=== PATIENT | female | born 1990 | race Caucasian/White ===

== ENCOUNTER 2016-10-29 11:42 | Emergency (ER) | payer OTHER ==
[~2016-10-29] VITALS: Ht 160 cm; Wt 63.0 kg
[~2016-10-29 11:42] MED LIST: DOXY100T20 PO; HYDR-906 PO; IBUP400T22 PO; METR500T PO; NAPR-260 PO
[2016-10-29 12:02] VITALS: Ht 160 cm; Wt 63.0 kg
[2016-10-29] MEDS ORDERED: SOD CHLORIDE 0.9% 1,000 ML IV STA (12:15)
[2016-10-29 12:38] LABS: ADD SCAN DIFF NO
[2016-10-29 12:40] LABS: BASOPHIL # 0.1 10^3/ul (0.0-0.1); BASOPHILS % 0.6 % (0.0-2.0); EOSINOPHILS # 0.1 10^3/ul (0.0-0.5); HEMATOCRIT 36.8 % (37.0-47.0); HEMOGLOBIN 12.3 g/dl (12.0-16.0); LYMPHOCYTES # 1.8 10^3/ul (0.8-2.9); LYMPHOCYTES % 17.9 % (15.0-51.0); MEAN CORPUSCULAR HEMOGLOBIN 29.9 pg (29.0-33.0); MEAN CORPUSCULAR HGB CONC 33.4 g/dl (32.0-37.0); MEAN CORPUSCULAR VOLUME 89.3 fl (82.0-101.0); MEAN PLATELET VOLUME 9.7 fl (7.4-10.4); MONOCYTE # 0.7 10^3/ul (0.3-0.9); NEUTROPHIL # 7.2 10^3/ul (1.6-7.5); NEUTROPHILS % 71.3 % (39.0-77.0); PLATELET COUNT 312 10^3/UL (140-415); RED BLOOD COUNT 4.12 10^6/ul (4.20-5.40); RED CELL DISTRIBUTION WIDTH 12.4 % (11.5-14.5); WHITE BLOOD COUNT 10.1 10^3/ul (4.8-10.8)
[2016-10-29 12:54] LABS: ANION GAP 8 (8-16); BLOOD UREA NITROGEN 8 mg/dl (7-20); CALCIUM 8.7 mg/dl (8.4-10.2); CARBON DIOXIDE 25 mmol/L (21-31); CHLORIDE 106 mmol/L (97-110); CREATININE 0.47 mg/dl (0.44-1.00); GLUCOSE 118 mg/dl (70-220); POTASSIUM 3.7 mmol/L (3.5-5.1); SODIUM 135 mmol/L (135-144)
[2016-10-29 13:06] LABS: TROPONIN-I < 0.012 ng/ml (0.00-0.12)
[2016-10-29 13:11] LABS: FREE T3 3.19 pg/ml (2.77-5.27)
[2016-10-29] MEDS ORDERED: PROP60CA7 PO (14:46)
--- NOTE | 2016-10-29 14:52 | ERD ---
ER Documentation Chief Complaint Date/Time DATE: 10/29/16 TIME: 14:49 Chief Complaint SVT at work rate of 200bpm coverted at scene w/ 12mg adenosine HPI This is a 26-year-old female with history of palpitations that occur monthly to bimonthly for the past 18 months. She says she gets heart racing usually resolves after 15 minutes. She has no chest pain or shortness of breath. She said today she had the same symptoms as usual however they did not go away after 15 minutes. This time today prior to arrival she had no chest pain or shortness of breath. She has no abdominal pain contractions vaginal bleeding. The patient says she has not had a workup for any arrhythmia and never has seen a doctor for this problem until today. She called EMS and was found to be in SVT and she was given adenosine 6 and 12 mg which broke her rhythm into a sinus tachycardia. Currently she is asymptomatic and has no complaints ROS All systems reviewed and are negative except as per history of present illness. Medications Home Meds Active Scripts Propranolol Hcl* (Inderal* LA) 60 Mg Cap.sa.24h, 60 MG PO DAILY, #30 CAP Prov:TREVOR BENTON DO 10/29/16 Discontinued Scripts Naproxen* (Naprosyn*) 500 Mg Tablet, 500 MG PO BID Y for PAIN AND/OR INFLAMMATION, #30 TAB Prov:JOHNNY MARTINEZ PA-C 05/06/16 Hydrocodone/Acetaminophen ([place] 5-325 Tablet) 1 Each Tablet, 1 EACH PO Q6, #6 TAB Prov:JOHNNY MARTINEZ PA-C 05/06/16 Ibuprofen* (Motrin*) 400 Mg Tab, 400 MG PO Q6, #30 TAB Prov:TRINO CONTI PA-C 04/03/16 Metronidazole* (Flagyl*) 500 Mg Tablet, 500 MG PO BID for 14 Days, TAB Prov:TRINO CONTI PA-C 04/03/16 Doxycycline Hyclate* (Doxycycline Hyclate*) 100 Mg Tablet.dr, 100 MG PO BID for 14 Days, TAB Prov:TRINO CONTI PA-C 04/03/16 Allergies Allergies: Coded Allergies: No Known Allergy (Unverified , 09/11/15) PMhx/Soc History of Surgery: Yes Anesthesia Reaction: No Hx Neurological Disorder: No Hx Respiratory Disorders: No Hx Cardiac Disorders: No Hx Psychiatric Problems: No Hx Miscellaneous Medical Probl: No Hx Alcohol Use: No Hx Substance Use: No Hx Tobacco Use: No Smoking Status: Never smoker FmHx Family History: No coronary disease Physical Exam Vitals Vital Signs Date Time Temp Pulse Resp B/P Pulse Ox O2 Delivery O2 Flow Rate FiO2 10/29/16 13:30 98.5 98 20 104/73 100 Room Air 10/29/16 12:05 98.5 110 20 114/83 100 Room Air 10/29/16 12:02 98.5 109 20 119/85 100 10/29/16 11:50 Nasal Cannula 2 Physical Exam Const: Well-developed, well-nourished Head: Atraumatic, normocephalic Eyes: Normal Conjunctiva, PERRLA, EOMI, normal sclera, no nystagmus ENT: Normal External Ears, Nose and Mouth, moist mucus membranes. Neck: Full range of motion. No meningismus, no lymphadenopathy. Resp: Clear to auscultation bilaterally, no wheezing, rhonchi, rales Cardio: Tachycardia heart rate 108 no murmurs, S1 S2 present Abd: Soft, non tender x 4, non distended., Gravid normal bowel sounds , no guarding or rebound, no pulsitile abdominal masses or bruits Skin: No petechiae or rashes, no ecchymosis , no maculopapular rash Back: No midline or flank tenderness Ext: No cyanosis, or edema, FROM x 4, normal inspection, neurovascularly intact x 4 Neur: Awake and alert, STR 5/5 x 4, sensation intact x 4, no focal findings, cerebellum intact Psych: Normal Mood and Affect Result Diagram: 10/29/16 1153 10/29/16 1153 Results 24 hrs Laboratory Tests Test 10/29/16 11:53 White Blood Count 10.110^3/ul Red Blood Count 4.1210^6/ul Hemoglobin 12.3g/dl Hematocrit 36.8% Mean Corpuscular Volume 89.3fl Mean Corpuscular Hemoglobin 29.9pg Mean Corpuscular Hemoglobin Concent 33.4g/dl Red Cell Distribution Width 12.4% Platelet Count 57593^3/UL Mean Platelet Volume 9.7fl Neutrophils % 71.3% Lymphocytes % 17.9% Monocytes % 7.0% Eosinophils % 1.0% Basophils % 0.6% Nucleated Red Blood Cells % 0.0/100WBC Neutrophils # 7.210^3/ul Lymphocytes # 1.810^3/ul Monocytes # 0.710^3/ul Eosinophils # 0.110^3/ul Basophils # 0.110^3/ul Nucleated Red Blood Cells # 0.010^3/ul Sodium Level 135mmol/L Potassium Level 3.7mmol/L Chloride Level 106mmol/L Carbon Dioxide Level 25mmol/L Anion Gap 8 Blood Urea Nitrogen 8mg/dl Creatinine 0.47mg/dl Glucose Level 118mg/dl Calcium Level 8.7mg/dl Troponin I < 0.012ng/ml Thyroid Stimulating Hormone (TSH) 1.220MIU/L Free Thyroxine 0.76ng/dl Free Triiodothyronine (T3) pg/mL 3.19pg/ml Current Medications Medications (Trade) Dose Ordered Sig/Lázaro Route PRN Reason Start Time Stop Time Status Last Admin Dose Admin Sodium Chloride (NS) 1,000 ml @ 1,000 mls/hr Q1H STAT IV 10/29/16 12:15 10/29/16 13:14 DC 10/29/16 12:49 Procedures/MDM EKG: Rate/Rhythm: Sinus tachycardia heart rate 108, right axis deviation no S1 Q3 T3 QRS, ST, QT: NORMAL [place], QRS, QT] Impression: NORMAL EKG Patient's thyroid is normal labs are unremarkable. The patient is likely having recurrent SVT on a monthly and bimonthly basis. Gave her a prescription for propanolol to start and she will see her OB GEN the beginning of this week as she artery has an appointment. She stable for discharge home and return if any symptoms return Departure Diagnosis: Primary Impression: SVT (supraventricular tachycardia) Condition: Stable Patient Instructions: TREVOR MONTES DO Oct 29, 2016 14:52
[2016-10-29 15:30] VITALS: BP 96/66; PULSE 99; RESP 20; TEMP 98.5
== END 2016-10-29 15:30 | disposition home or self-care (01) ==
LOC: E/R 11:42
DX: I47.1 Supraventricular tachycardia (principal)
CPT/HCPCS: 80048; 84439; 84443; 84481; 84484; 85025; 93005; J7030; 36415

== ENCOUNTER 2016-12-03 22:57 | Outpatient (CLI) | payer OTHER ==
[~2016-12-03] VITALS: Ht 165.1 cm; Wt 62.3 kg
[~2016-12-03 22:57] MED LIST changes: -DOXY100T20 PO; -HYDR-906 PO; -IBUP400T22 PO; -METR500T PO; -NAPR-260 PO; +PROP60CA7 PO
[2016-12-03 23:06] VITALS: Ht 165.1 cm; Wt 62.3 kg
[2016-12-03] MEDS ORDERED: PRENAT PO (23:07)
--- NOTE | 2016-12-03 23:43 | PN ---
Date/Time of Note Date/Time of Note DATE: 12/03/16 TIME: 23:38 OB Subjective Subjective Subjective 26 yo P0010 @ 29 wks gestation, unregistered to this hospital, presents with abdominal pain, which resolved when lying down and is worse when walking good FM, no VB, c/o LOF, no ctx OB Objective Objective Objective Nml VS Abdomen- gravid, n/t SVE- deferred FHT- Cat I [place]- no ctx SSE: neg pooling, neg nitrazine Abdomen: WNL Membranes: Intact Heart Rate: 150's Accelerations: Accelerations Present Decelerations: No Decelerations Varibility: Moderate Contractions on Admission: None OB Assessment/Plan Other Assessment: patient c/o abdominal pain, which is likely muscular r/o pprom Other plan: no signs of PPROM; will send ROM+ to confirm and will order u/s if neg and nml sono, d/c home advised to purchase maternity binder for abdominal pain. TRICIA WESTFALL MD December 03, 2016 23:43
[2016-12-03 23:48] LABS: ADD UMIC YES; URINE BILIRUBIN (Dip) NEGATIVE (NEGATIVE); URINE BLOOD (Dip) NEGATIVE (NEGATIVE); URINE COLOR LT. YELLOW (YELLOW); URINE KETONES (Dip) NEGATIVE (NEGATIVE); URINE LEUKOCYTE ESTERASE (Dip) TRACE (NEGATIVE); URINE NITRITE (Dip) NEGATIVE (NEGATIVE); URINE TOTAL PROTEIN (Dip) NEGATIVE (NEGATIVE); URINE UROBILINOGEN (Dip) 0.2 E.U./dL (0.1-1.0)
[2016-12-04 00:41] LABS: SQUAMOUS EPITHELIAL CELL,UR FEW; URINE RBCS 0-2 /HPF (0)
[2016-12-04 00:42] LABS: BACTERIA,URINE MODERATE
--- NOTE | 2016-12-04 01:44 | TRIAGE ---
OB Triage Datetime Report Generated by CPN: 12/04/2016 01:43 Datetime: 12/04/2016 01:43 Stage of : OB Triage Datetime: 12/04/2016 01:25 Stage of : OB Triage Datetime: 12/04/2016 00:41 Stage of : OB Triage Datetime: 12/04/2016 00:25 Stage of : OB Triage Datetime: 12/03/2016 23:55 Stage of : OB Triage Datetime: 12/03/2016 23:41 Comments: NST MONITORING COMPLETED Datetime: 12/03/2016 23:30 Labor Evaluation Frequency: NONE Monitor Mode: External Duration (sec)2399: NONE Pattern: Normal: <= 5 Contractions in 10 Minutes Contraction Comments: PT. DENIES CRAMPING Heart Rate FHR Baseline Rate: 145 Monitor Mode: External US FHR Baseline Changes: No Baseline Change Variability: Moderate 6-25 bpm Accelerations: 15X15 Decelerations: None Datetime: 12/03/2016 23:08 Monitor Mode: Palpation Resting Tone [place]: Relaxed Datetime: 12/03/2016 23:02 Assessment Type: Triage EGA: 29.4 Maternal Assessment Level of Consciousness: Fully Conscious Headache: Denies Blurred Vision: No Respiratory Effort: Unlabored; Regular Rhythm; Equal Expansion Nausea/Vomiting: Denies RUQ Epigastric Pain: Denies Facial Edema: None Fall Risk Assessment History of Falling: (0) No Secondary Diagnosis: (0) No Ambulatory Aid: (0) Bedrest/Nurse Assist IV Therapy: (0) No Gait: (0) Normal/Bedrest/Immobile Mental Status: (0) Oriented to Own Ability Fall Score: 0 Fall Risk Score Definition: No Risk: No action required Datetime: 12/03/2016 23:01 Time of Arrival: 12/03/2016 22:46 Arrived By: Wheelchair Arrived From: Home Chief Complaint: CONSTANT LOWER ABD PAIN WITH 'LEAKING' Movement: Present Contractions: Denies/Absent Rupture of Membranes: Unsure Vaginal Bleeding: None Vaginal Discharge: Present Recent Sexual Intercouse: Denies Abdominal Trauma: Not Applicable Patient Complaints: Other Time Provider Notified: 12/03/2016 23:19 Provider Notified: WESTFALL Initial Plan: EFM, CALL OB Datetime: 12/03/2016 22:59 Monitor Mode: Palpation Resting Tone [place]: Relaxed Datetime: 12/03/2016 22:58 Monitor Mode: External Monitor Mode: External US Datetime: 12/03/2016 22:55 Stage of : OB Triage Temperature Route: Oral Datetime: 12/03/2016 22:50 Stage of : OB Triage
== END 2016-12-04 01:50 | disposition home or self-care (01) ==
LOC: OBT 22:57 → L-D 22:58 → OBT 12-04 01:50
PROVIDERS: ATTEND Obstetrics & Gynecology
DX: O26.893 Other specified pregnancy related conditions, third trimester (principal); R10.9 Unspecified abdominal pain; Z3A.29 29 weeks gestation of pregnancy
CPT/HCPCS: 76815; 81001; 81003; 82731; 84112; G0463

== ENCOUNTER 2017-02-11 03:04 | Inpatient (IN) | payer OTHER ==
[~2017-02-11] VITALS: Ht 162.6 cm; Wt 69.5 kg
[~2017-02-11 03:04] MED LIST changes: +PRENAT PO; -PROP60CA7 PO
[2017-02-11 03:29] VITALS: Ht 162.6 cm; Wt 69.5 kg
[2017-02-11 03:30] VITALS: BP 123/72; PULSE 89; RESP 18
[2017-02-11] MEDS ORDERED: BUTORPHANOL 2 MG INJ IV PRN (04:00)
[2017-02-11] MEDS ORDERED: LIDOCAINE 1% (MPF) 30 ML INJ INJ PRN (04:00)
[2017-02-11] MEDS ORDERED: METHYLERGONOVINE 0.2 MG INJ IM PRN (04:00)
[2017-02-11] MEDS ORDERED: OXYTOCIN 30 UNITS/LR 500 ML IV SCH ×2 (04:00)
[2017-02-11] MEDS ORDERED: MISOPROSTOL 200 MCG TAB PR PRN (04:00)
[2017-02-11] MEDS ORDERED: LACTATED RINGER'S 1,000 ML IV PRN (04:00)
[2017-02-11] MEDS ORDERED: CARBOPROST 250 MCG INJ IM PRN (04:00)
[2017-02-11] MEDS ORDERED: OXYTOCIN 30 UNITS/LR 500 ML IV PRN ×2 (04:00→16:00)
[2017-02-11 05:23] LABS: BASOPHIL # 0.1 10^3/ul (0.0-0.1); BASOPHILS % 0.5 % (0.0-2.0); EOSINOPHILS # 0.1 10^3/ul (0.0-0.5); EOSINOPHILS % 0.7 % (0.0-7.0); HEMATOCRIT 42.4 % (37.0-47.0); HEMOGLOBIN 14.1 g/dl (12.0-16.0); LYMPHOCYTES # 2.2 10^3/ul (0.8-2.9); LYMPHOCYTES % 21.1 % (15.0-51.0); MEAN CORPUSCULAR HEMOGLOBIN 29.2 pg (29.0-33.0); MEAN CORPUSCULAR HGB CONC 33.3 g/dl (32.0-37.0); MEAN CORPUSCULAR VOLUME 87.8 fl (82.0-101.0); MEAN PLATELET VOLUME 9.7 fl (7.4-10.4); MONOCYTE # 0.9 10^3/ul (0.3-0.9); MONOCYTES % 8.3 % (0.0-11.0); NEUTROPHIL # 6.8 10^3/ul (1.6-7.5); NEUTROPHILS % 66.5 % (39.0-77.0); PLATELET COUNT 238 10^3/UL (140-415); RED BLOOD COUNT 4.83 10^6/ul (4.20-5.40); RED CELL DISTRIBUTION WIDTH 13.3 % (11.5-14.5); WHITE BLOOD COUNT 10.3 10^3/ul (4.8-10.8)
[2017-02-11] MEDS: LACTATED RINGER'S 1,000 ML IV SCH ×2 (05:25→20:26)
[2017-02-11 05:37] LABS: INR 0.87; PROTIME 11.8 Sec (12.2-14.2); PT RATIO 0.9
[2017-02-11 05:38] LABS: PARTIAL THROMBOPLASTIN TIME 27.9 Sec (25.0-35.0)
--- NOTE | 2017-02-11 05:46 | TRIAGE ---
OB Triage Datetime Report Generated by CPN: 02/11/2017 05:46 Datetime: 02/11/2017 05:05 Vaginal Exam Dilatation (cms): 2.0 Effacement (%): 70 Station: -3 Exam By: ASAEL Vaginal Bleeding: None Cervix, Consistency: Soft Cervix, Position: Midposition Datetime: 02/11/2017 04:40 Assessment Type: Admission Assessment Vaginal Bleeding: None Maternal Assessment Level of Consciousness: Fully Conscious DTR's/Clonus: DTRs 2+; No Clonus Headache: Denies Blurred Vision: No Respiratory Effort: Unlabored; Regular Rhythm; Equal Expansion Breath Sounds, Left: Clear and Equal Breath Sounds, Right: Clear and Equal Nausea/Vomiting: Denies RUQ Epigastric Pain: Denies Lower Extremities Edema: None Upper Extremities Edema: None Facial Edema: None Fall Risk Assessment History of Falling: (0) No Secondary Diagnosis: (0) No Ambulatory Aid: (0) Bedrest/Nurse Assist IV Therapy: (0) No Gait: (0) Normal/Bedrest/Immobile Mental Status: (0) Oriented to Own Ability Fall Score: 0 Fall Risk Score Definition: No Risk: No action required Pain Assessment Pain Scale: 7 Pain Presence: Intermittent Pain Type: Cramping; Crushing Pain Location: Abdomen; Back Pain Goal: 3 Membranes Ruptured Date/Time: 02/11/2017 02:40 Membranes Rupture Method: Spontaneous Amniotic Fluid Color: Clear Amniotic Fluid Amount: Moderate Amniotic Fluid Odor: None Pool: Positive (Annotations: PER NESSA RN) Nitrazine: Positive (Annotations: PER NESSA) Datetime: 02/11/2017 04:00 Stage of : OB Triage Labor Evaluation Frequency: 2-3 Monitor Mode: External Duration (sec)2399: 60-90 Quality: Moderate Pattern: Normal: <= 5 Contractions in 10 Minutes Resting Tone [place]: Relaxed Heart Rate FHR Baseline Rate: 125 Monitor Mode: External US FHR Baseline Changes: No Baseline Change Variability: Moderate 6-25 bpm Accelerations: 15X15 Decelerations: None Category: Category I Pain Assessment Pain Scale: 3 Pain Presence: Intermittent Pain Type: Contraction Pain Location: Abdomen Pain Goal: 6 Pain Relief Measures: Comfort Measures Datetime: 02/11/2017 03:40 Stage of : OB Triage Datetime: 02/11/2017 03:21 Vaginal Exam Dilatation (cms): 1.0 Effacement (%): 70 Station: -2 Exam By: Wander Eaton RN Membrane Status: Ruptured Membranes Rupture Method: Spontaneous Amniotic Fluid Color: Clear Amniotic Fluid Amount: Moderate Amniotic Fluid Odor: None Vaginal Bleeding: None Pool: Positive Nitrazine: Positive Cervix, Consistency: Moderate Cervix, Position: Midposition Presentation 'A': Cephalic Datetime: 02/11/2017 03:18 Assessment Type: Triage Maternal Assessment Level of Consciousness: Fully Conscious DTR's/Clonus: DTRs 2+; No Clonus Headache: Denies Blurred Vision: No Respiratory Effort: Unlabored; Regular Rhythm; Equal Expansion Breath Sounds, Left: Clear and Equal Breath Sounds, Right: Clear and Equal Nausea/Vomiting: Denies RUQ Epigastric Pain: Denies Lower Extremities Edema: None Degree: None Upper Extremities Edema: None Degree: None Facial Edema: None Fall Risk Assessment History of Falling: (0) No Secondary Diagnosis: (0) No Ambulatory Aid: (0) Bedrest/Nurse Assist IV Therapy: (0) No Gait: (0) Normal/Bedrest/Immobile Mental Status: (0) Oriented to Own Ability Fall Score: 0 Fall Risk Score Definition: No Risk: No action required Datetime: 02/11/2017 03:15 Monitor Mode: External Contraction Comments: Applied Monitor Mode: External US Comments: Applied Datetime: 02/11/2017 03:12 Time of Arrival: 02/11/2017 02:58 EGA: 39.4 Arrived By: Wheelchair Arrived From: Home Chief Complaint: SROM @ 0240 Movement: Present Contractions: Regular Time Contractions Began: 02/11/2017 02:40 Contractions: 2-4mins Rupture of Membranes: Ruptured Vaginal Bleeding: None Vaginal Discharge: Denies Recent Sexual Intercouse: Denies Abdominal Trauma: Not Applicable Patient Complaints: Contractions; Other Time Provider Notified: 02/11/2017 03:25 Provider Notified: Dr Mejia Initial Plan: EFM X2, SVE, nitrazine Datetime: 12/04/2016 01:47 Stage of : OB Triage Datetime: 12/03/2016 23:02 EGA: 29.4 Fall Score: 0 Fall Risk Score Definition: No Risk: No action required
[2017-02-11] MEDS ORDERED: LACTATED RINGER'S 1,000 ML IV ONE (07:28)
[2017-02-11] MEDS ORDERED: NALBUPHINE HCL (10 MG/1 ML) INJ IV PRN (07:30)
[2017-02-11] MEDS ORDERED: KETOROLAC 30 MG INJ IV PRN (07:30)
[2017-02-11] MEDS ORDERED: morphine 2 MG INJ IV PRN ×2 (07:30)
[2017-02-11] MEDS ORDERED: TRIMETHOBENZAMIDE 100 MG/ML VIAL IM PRN (07:30)
[2017-02-11] MEDS ORDERED: ONDANSETRON 4 MG INJ IV ONE (07:30)
[2017-02-11] MEDS ORDERED: DIPHENHYDRAMINE 50 MG INJ IV PRN (07:30)
[2017-02-11] MEDS ORDERED: NALOXONE (0.4 MG/ML) INJ IV PRN (07:30)
[2017-02-11] MEDS ORDERED: CITRIC ACID/NA CITRATE 30 ML CUP PO ONE (07:30)
[2017-02-11] MEDS ORDERED: ONDANSETRON 4 MG INJ IV PRN (07:30)
[2017-02-11] MEDS: FENTAnyl 2MCG/ML-ROPIV 0.2% 100 ML BAG EPI SCH ×2 (14:24→20:20)
[2017-02-11] MEDS ORDERED: AMPICILLIN 2 GM/NS (PMX) 100 ML IVPB ONE (16:00)
--- NOTE | 2017-02-11 16:11 | HP ---
Date/Time of Note Date/Time of Note DATE: 02/11/17 TIME: 15:55 OB - History Hx of Present Free Text/Dictation Patient is 2 para 0 at 39+ weeks of gestation who presents with spontaneous rupture of membranes Past obstetrical history significant for ectopic in 2016 Patient has had care with Dr VASQUEZ Patient presents with spontaneous rupture of membranes since 2:40 AM- clear fluid GBS status neg Patient gestational diabetic- diet control glucose acu check 80-93 Chief Complaint: Patient is 2 para 0 at 39+ weeks of gestation Estimated Due Date: Feb 14, 2017 : 2 Para: 0 Care: Good Care Past Family/Social History * Past Medical, Surgical, Family and Obstetric Histories reviewed from chart. GBS Status: Negative OB Admission Exam Vital Signs Vital Signs Vital Signs Date Time Temp Pulse Resp B/P Pulse Ox O2 Delivery O2 Flow Rate FiO2 02/11/17 03:30 98.1 89 18 123/72 Room Air Physical Exam HEENT: WNL Heart: Rhythm Normal Lungs: Clear, Equal Abdomen: WNL Extremities: Normal Reflexes: Normal Cervical Dilatation: 4cm Effacement: 100% Station: 0 Membranes: Ruptured Amniotic Fluid: Clear Heart Rate: 140's Accelerations: Accelerations Present Decelerations: Early Decelerations Last 72 hourBlood Glucose Bedside Glucose - 72 Hours Test 02/11/17 11:09 Bedside Glucose 80mg/dL (70-220) Last 72 hours Lab Results CBC & BMP 02/11/17 04:55 OB Assessment/Plan Reason for admission: active labor, rupture of membranes Plan: Induction Induction Method: per Pitocin Protocol Other plan: OB ultrasound to obtain estimated weight labs- CBC, CMP Antibiotics for GBS prophylaxis Oxytocin augmentation SUMMER FISH MD Feb 11, 2017 16:05
[2017-02-11] MEDS: DEXTROSE 5%-LR 1,000 ML IV SCH (16:53)
[2017-02-11 17:21] LABS: ALBUMIN 3.5 g/dl (3.3-4.9); ALBUMIN/GLOBULIN RATIO 1.09; BILIRUBIN,INDIRECT 0.3 mg/dl (0-1.1); BILIRUBIN,TOTAL 0.3 mg/dl (0.2-1.3); CALCIUM 8.9 mg/dl (8.4-10.2); CREATININE 0.56 mg/dl (0.44-1.00); POTASSIUM 3.9 mmol/L (3.5-5.1); TOTAL PROTEIN 6.7 g/dl (6.1-8.1)
--- NOTE | 2017-02-11 17:56 | RADRPT ---
PROCEDURE: US OB. CLINICAL INDICATION: Size and dates , large for dates TECHNIQUE: Multiple sonographic images of the pelvis and gravid uterus were obtained. The images were reviewed on a PACS workstation. COMPARISON: 12/03/2016 FINDINGS: There is a single viable intrauterine gestation. Cardiac activity is present with 139 beats per min [place]. There is a vertex presentation. The placenta is anterior. There is no evidence for an abruption or placenta previa. Measurements were made in order to determine age. The results are as follows: BPD =9.3 cm HC =33.5 cm AC =34.2 cm FL =7.5 cm Estimated gestational age of approximately 38 weeks and 2 days based on ultrasound measurements. Clinical age: 39 weeks and 4 days. The estimated date of delivery is 02/23/17, based on ultrasound measurements. The EFW = 3419 g, 39%, based on LMP age. RPTAT: AA IMPRESSION: Single viable intrauterine gestation of approximately 38 weeks and 2 days based on ultrasound measu rements. .Cj Leahy MD, Date Time Electronically viewed and signed by .Cj Leahy MD, on 02/11/2017 17:56 .S/
[2017-02-11] MEDS: AMPICILLIN 1 GM/NS (PMX) 50 ML IVPB SCH (20:04)
[2017-02-11] MEDS ORDERED: ACETAMINOPHEN 500 MG TAB PO PRN (21:00)
[2017-02-11] MEDS: GENTAMICIN 80 MG/NS (PMX) 50 ML IVPB SCH (21:01)
[2017-02-11] MEDS ORDERED: ACCU-CHEK XX SCH (21:30)
--- NOTE | 2017-02-11 23:23 | LDN ---
Date/Time of Note Date/Time of Note DATE: 02/11/17 TIME: 23:18 Delivery Summary Vacuum-assisted vaginal delivery for tachycardia and nonreassuring heart rate tracing Mom with epidural anesthesia Fetus with OA presentation at +4 station Lidocaine was given for local anesthesia Medial episiotomy was performed Kiwi vacuum applied once and pulled along with patient twice Tight cord around the neck 1 was clamped and cut Baby's weight 3130 g; 6 lbs. 14 oz. Apgars 8 and 9 Placenta delivered spontaneously with three-vessel cord and sent for pathology evaluation Second-degree laceration repaired in multiple layers with 2-0 Vicryl and 3-0 Vicryl Estimated blood loss 250 cc Weeks of Gestation 39+ Assisted Vaginal Delivery: Vacuum Placenta Delivered: Spontaneously Meconium: none Episiotomy: Yes Indication for episiotomy Vacuum assisted delivery Laceration repair: Medial episiotomy performed Second-degree laceration repaired in layered fashion with multiple 2-0 Vicryl and 3-0 Vicryl sutures Anesthesia type: Epidural (Local anesthesia was also given) Estimated blood loss: 250 Sponge & Needle done & correct: Yes All needle counts correct: Yes Any foreign bodies felt in the: No Problems: Delivery Information Sex Infant Sex: female Apgars 1 Minute: 8 5 Minute: 9 Suctioning Nose & mouth suctioned at [place]: Yes Umbilical Cord Umbilical cord with: 3 Vessels Cord presentations: nuchal cord (Tight cord around the neck 1; clamped and cut at the perineum) Cord Blood was obtained: Yes SUMMER FISH MD Feb 11, 2017 23:23
[2017-02-11] MEDS: IBUPROFEN 600 MG TAB PO PRN (23:26)
[2017-02-11] MEDS: CLINDAMYCIN 900 MG/D5W (PMX) 50 ML IVPB SCH (23:28)
[2017-02-12] VITALS (7 sets, daily range): BP systolic 102–124; BP diastolic 53–82; PULSE 72–110; RESP 18–19
[2017-02-12] MEDS ORDERED: METHYLERGONOVINE 0.2 MG INJ IM PRN
[2017-02-12] MEDS ORDERED: SENNA/DOCUSATE NA (8.6MG/50MG) TAB PO PRN
[2017-02-12] MEDS ORDERED: CARBOPROST 250 MCG INJ IM PRN
[2017-02-12] MEDS ORDERED: ONDANSETRON 4 MG INJ IV PRN
[2017-02-12] MEDS ORDERED: DIBUCAINE 1% 30 GM OINT PR PRN
[2017-02-12] MEDS ORDERED: OXYTOCIN 30 UNITS/LR 500 ML IV PRN
[2017-02-12] MEDS ORDERED: MAGNESIUM HYDROXIDE 30ML CUP PO PRN
[2017-02-12] MEDS ORDERED: LANOLIN 7 GM TUBE TOP PRN
[2017-02-12] MEDS ORDERED: BENZOCAINE 20% 56 ML SPRAY TOP PRN
[2017-02-12] MEDS ORDERED: WITCH HAZEL/GLYCERIN PAD PR PRN
[2017-02-12] MEDS ORDERED: MISOPROSTOL 200 MCG TAB PR PRN
[2017-02-12] MEDS ORDERED: ACETAMINOPHEN 325 MG TAB PO PRN ×2
[2017-02-12] MEDS: OXYTOCIN 30 UNITS/LR 500 ML IV SCH ×2 (01:03→09:42)
[2017-02-12] MEDS: DEXTROSE 5%-LR 1,000 ML IV SCH ×3 (01:03→11:19)
[2017-02-12] MEDS: LACTATED RINGER'S 1,000 ML IV* SCH ×3 (01:05→14:17)
[2017-02-12] MEDS: AMPICILLIN 1 GM/NS (PMX) 50 ML IVPB SCH ×6 (01:48→21:40)
[2017-02-12] MEDS: GENTAMICIN 80 MG/NS (PMX) 50 ML IVPB SCH ×3 (05:50→21:41)
[2017-02-12] MEDS: CLINDAMYCIN 900 MG/D5W (PMX) 50 ML IVPB SCH ×3 (06:42→22:27)
[2017-02-12 07:46] LABS: BASOPHIL # 0.1 10^3/ul (0.0-0.1); BASOPHILS % 0.2 % (0.0-2.0); EOSINOPHILS % 0.2 % (0.0-7.0); HEMATOCRIT 34.8 % (37.0-47.0); HEMOGLOBIN 11.7 g/dl (12.0-16.0); LYMPHOCYTES # 2.5 10^3/ul (0.8-2.9); LYMPHOCYTES % 11.5 % (15.0-51.0); MEAN CORPUSCULAR HEMOGLOBIN 29.8 pg (29.0-33.0); MEAN CORPUSCULAR HGB CONC 33.6 g/dl (32.0-37.0); MEAN CORPUSCULAR VOLUME 88.5 fl (82.0-101.0); MEAN PLATELET VOLUME 9.6 fl (7.4-10.4); MONOCYTE # 1.3 10^3/ul (0.3-0.9); MONOCYTES % 6.2 % (0.0-11.0); NEUTROPHIL # 17.5 10^3/ul (1.6-7.5); NEUTROPHILS % 81.1 % (39.0-77.0); PLATELET COUNT 209 10^3/UL (140-415); RED BLOOD COUNT 3.93 10^6/ul (4.20-5.40); RED CELL DISTRIBUTION WIDTH 13.3 % (11.5-14.5); WHITE BLOOD COUNT 21.5 10^3/ul (4.8-10.8)
[2017-02-12] MEDS ORDERED: IBUPROFEN 600 MG TAB PO PRN (08:00)
[2017-02-12 08:23] LABS: ALBUMIN/GLOBULIN RATIO 1.03; BILIRUBIN,INDIRECT 0.4 mg/dl (0-1.1); BILIRUBIN,TOTAL 0.4 mg/dl (0.2-1.3); CALCIUM 8.8 mg/dl (8.4-10.2); CREATININE 0.56 mg/dl (0.44-1.00); POTASSIUM 3.6 mmol/L (3.5-5.1); TOTAL PROTEIN 5.9 g/dl (6.1-8.1)
[2017-02-12] MEDS: ACCU-CHEK XX SCH ×3 (09:00→13:50)
[2017-02-12] MEDS: DOCUSATE SODIUM 100 MG CAP PO SCH ×2 (09:29→21:40)
[2017-02-12] MEDS: IBUPROFEN 600 MG TAB PO PRN ×3 (09:40→22:25)
--- NOTE | 2017-02-12 10:01 | QN ---
Documentation Comment Progress Note PPD #1 Pt is with a nipple shiled. The bleeding is minimal. Pt does have pain at a laceration site. Just received pain meds and will get an ice pack. Pt is on triple antibiotics for chorioamnionitis. T= 98.2 BP 122/82 Fundus firm, NT. Lochia minimal. Ext NT, no edema. WBC 21.5 Hgb 11.7 Plts 209K P: Continue care. Antibiotics until this afternoon. Will recheck her CBC in AM. D/C blood glucose checks as pt had diet controlled gestational diabetes only. MIMI GALLO MD Feb 12, 2017 10:01
[2017-02-12] MEDS: ACETAMINOPHEN/CODEINE #3 TAB PO PRN (12:16)
[2017-02-13 04:00] VITALS: BP 106/53; PULSE 84; RESP 20
[2017-02-13] MEDS: ACETAMINOPHEN/CODEINE #3 TAB PO PRN (05:19)
[2017-02-13 07:40] VITALS: BP 107/68; PULSE 81; RESP 16
[2017-02-13 08:39] LABS: BASOPHIL # 0.1 10^3/ul (0.0-0.1); BASOPHILS % 0.3 % (0.0-2.0); EOSINOPHILS # 0.1 10^3/ul (0.0-0.5); EOSINOPHILS % 0.7 % (0.0-7.0); HEMATOCRIT 30.2 % (37.0-47.0); HEMOGLOBIN 10.2 g/dl (12.0-16.0); LYMPHOCYTES # 1.6 10^3/ul (0.8-2.9); LYMPHOCYTES % 10.8 % (15.0-51.0); MEAN CORPUSCULAR HEMOGLOBIN 29.9 pg (29.0-33.0); MEAN CORPUSCULAR HGB CONC 33.8 g/dl (32.0-37.0); MEAN CORPUSCULAR VOLUME 88.6 fl (82.0-101.0); MEAN PLATELET VOLUME 10.3 fl (7.4-10.4); MONOCYTE # 0.8 10^3/ul (0.3-0.9); MONOCYTES % 5.7 % (0.0-11.0); NEUTROPHIL # 11.7 10^3/ul (1.6-7.5); PLATELET COUNT 207 10^3/UL (140-415); RED BLOOD COUNT 3.41 10^6/ul (4.20-5.40); RED CELL DISTRIBUTION WIDTH 13.7 % (11.5-14.5); WHITE BLOOD COUNT 14.4 10^3/ul (4.8-10.8)
[2017-02-13] MEDS: DOCUSATE SODIUM 100 MG CAP PO SCH (08:54)
[2017-02-13] MEDS: IBUPROFEN 600 MG TAB PO PRN (08:58)
--- NOTE | 2017-02-13 12:51 | DS ---
Date/Time of Note Date/Time of Note DATE: 02/13/17 TIME: 12:50 Obstetrical Discharge Record Final Diagnosis Final Diagnosis: Term delivered Vaginal Delivery Obstetrical Delivery: Spontaneous Complications Gestational Diabetes Condition on Discharge Physical Assessment Voiding: Yes Bowel Movement: Yes Breast: Soft, non-tender Fundus: Firm Calf Tenderness: No Patient Condition: Stable OSVALDO GOMEZ MD Feb 13, 2017 12:51
== END 2017-02-13 13:30 | disposition home or self-care (01) | DRG 775 ==
LOC: OBT 03:04 → L-D 03:05 → OBT 03:44 → PP1 02-12 00:31
PROVIDERS: ADMIT Obstetrics & Gynecology; ATTEND Obstetrics & Gynecology
PROC: 10D07Z6 Extraction of Products of Conception, Vacuum, Via Natural or Artificial Opening (ICD-10-PCS; principal; 2017-02-11)
PROC: 0KQM0ZZ Repair Perineum Muscle, Open Approach (ICD-10-PCS; 2017-02-11)
PROC: 0W8NXZZ Division of Female Perineum, External Approach (ICD-10-PCS; 2017-02-11)
PROC: 3E033VJ Introduction of Other Hormone into Peripheral Vein, Percutaneous Approach (ICD-10-PCS; 2017-02-11)
DX: O76 Abnormality in fetal heart rate and rhythm complicating labor and delivery (principal); O70.1 Second degree perineal laceration during delivery; Z3A.39 39 weeks gestation of pregnancy; Z37.0 Single live birth
CPT/HCPCS: 62319; 76815; 80053; 82947; 82962; 85025; 85610; 85730; 86592; 86900; 86901; 88307; 99464; A4310; G0463; J0290; J0595; J1580; J2210; J2270; J2590; J3010; J7120; J7121

== ENCOUNTER 2017-05-25 21:25 | Emergency (ER) | payer OTHER ==
[~2017-05-25] VITALS: Ht 165.1 cm; Wt 55.0 kg
[2017-05-25 21:27] VITALS: Ht 165.1 cm; Wt 55.0 kg
[2017-05-25] MEDS ORDERED: KETOROLAC 30 MG INJ IM STA (23:18)
--- NOTE | 2017-05-26 00:36 | RADRPT ---
PROCEDURE: Right wrist x-ray CLINICAL INDICATION: wrist pain TECHNIQUE: AP, lateral and oblique views of the wrist were obtained. COMPARISON: None FINDINGS: There is normal mineralization. No acute fracture or dislocation is seen. There are no significant degenerative changes. There is no significant soft tissue swelling. IMPRESSION: 1. No osseous abnormality. RPTAT:AAJJ Physician Ben Date Time Electronically viewed and signed by Kuldeep Jackson Physician on 05/26/2017 00:36 QL/
--- NOTE | 2017-05-27 12:10 | ERD ---
ER Documentation Chief Complaint Chief Complaint c/o right arm pain x 3 months. No injury or obvious deformity. HPI This is a 26 year old female presenting to ER for right arm pain x 3 months. Patient states she developed pain in the right forearm and right wrist. No loss of sensation, numbness or tingling. No injury or fall. No laceration or bruising. No palpable masses. ROS All systems reviewed and are negative except as per history of present illness. Medications Home Meds Reported Medications Multivit/Min/Fol Ac/Iron/Pren* ( S*) 1 Tab Tab, 1 TAB PO DAILY, TAB 12/03/16 Allergies Allergies: Coded Allergies: No Known Allergy (Unverified , 12/03/16) PMhx/Soc History of Surgery: Yes (Ectopic Removed) Anesthesia Reaction: No Hx Neurological Disorder: No Hx Respiratory Disorders: No Hx Cardiac Disorders: No Hx Psychiatric Problems: No Hx Miscellaneous Medical Probl: No Hx Alcohol Use: No Hx Substance Use: No Hx Tobacco Use: No Smoking Status: Never smoker Physical Exam Vitals Vital Signs Date Time Temp Pulse Resp B/P Pulse Ox O2 Delivery O2 Flow Rate FiO2 05/25/17 21:27 98.2 81 18 122/70 98 Physical Exam Const: No acute distress, alert Head: Atraumatic Eyes: Normal Conjunctiva ENT: Normal External Ears, Nose and Mouth. Neck: Full range of motion..~ No meningismus. Resp: Clear to auscultation bilaterally. No wheezing, rhonchi or crackles. No stridor or labored breathing. Cardio: Regular rate and rhythm, no murmurs Abd: Soft, non tender, non distended. Normal bowel sounds Skin: No petechiae or rashes Back: No midline or flank tenderness Ext: No cyanosis, or edema. Full mobility to bilateral upper extremities. Radial pulses 2+ bilaterally. Sensation fully intact. Capillary refill less than 3 seconds. Skin is warm dry and intact. No palpable masses. Neur: Awake and alert Psych: Normal Mood and Affect Results 24 hrs Current Medications Medications (Trade) Dose Ordered Sig/Lázaro Route PRN Reason Start Time Stop Time Status Last Admin Dose Admin Ketorolac Tromethamine (Toradol) 30 mg ONCE STAT IM 05/25/17 23:18 05/25/17 23:19 DC 05/25/17 23:31 Procedures/MDM DIAGNOSTIC IMAGING REPORT Patient: AMANDA COBIAN : 1990 Age: 26 Sex: F MR #: [id number] DOS: 05/25/17 2318 Ordering MD: ANA ALVAREZ NP Location: [facility] Room/Bed: PROCEDURE: Right wrist x-ray CLINICAL INDICATION: wrist pain TECHNIQUE: AP, lateral and oblique views of the wrist were obtained. COMPARISON: None FINDINGS: There is normal mineralization. No acute fracture or dislocation is seen. There are no significant degenerative changes. There is no significant soft tissue swelling. IMPRESSION: 1. No osseous abnormality. MDM: This is a 18-year-old female presenting to emergency department for right forearm pain 3 months. No injury or trauma to area. No fall. No obvious deformity. X-ray right wrist reviewed by radiologist as no osseous abnormality. Patient remains neurovascularly intact. Patient given Toradol 30 mg IM while in the ED. Vital signs are stable. Patient is appropriate for outpatient management instructed to follow-up with primary care provider in the next 2-3 days for reassessment and additional management. Return to ED for any high fever, chest pain, difficulty breathing, shortness breath, wheezing, vomiting, diarrhea, abdominal pain or any new or worsening symptoms. Patient verbalizes understanding. All questions answered at discharge. Disclaimer: Inadvertent spelling and grammatical errors are likely due to EHR/ dictation software use and do not reflect on the overall quality of patient care. Also, please note that the electronic time recorded on this note does not necessarily reflect the actual time of the patient encounter. Departure Diagnosis: Primary Impression: Wrist pain Laterality: right Qualified Code: M25.531 - Right wrist pain Condition: Stable Patient Instructions: Wrist Splint, Velcro, Wrist Sprain Additional Instructions: Call your primary care doctor TOMORROW for an appointment during the next 2-3 days.See the doctor sooner or return here if your condition worsens before your appointment time. Return to ED for any high fever, chest pain, difficulty breathing, shortness breath, wheezing, vomiting, diarrhea, abdominal pain or any new or worsening symptoms. ANA NOVAK NP May 27, 2017 12:09
== END 2017-05-26 00:50 | disposition home or self-care (01) ==
LOC: FTE 21:25
DX: M25.531 Pain in right wrist (principal)
CPT/HCPCS: 29125; 73110; 96372; J1885; Z7502

== ENCOUNTER 2017-10-18 15:21 | Emergency (ER) | END 2017-10-18 16:15 | disposition left against medical advice (07) ==

== ENCOUNTER 2018-01-09 12:45 | Emergency (ER) | END 2018-01-09 15:43 | disposition home or self-care (01) ==

== ENCOUNTER 2018-06-04 07:22 | Inpatient (IN) | END 2018-06-05 15:48 | disposition home or self-care (01) | DRG 627 ==

== ENCOUNTER 2018-08-27 08:37 | Inpatient (IN) | payer OTHER ==
[2018-08-24 16:57] VITALS: BMI 21.1
[2018-08-27] VITALS (24 sets, daily range): BP systolic 94–123; BP diastolic 50–66; PULSE 68–98; RESP 16–23; Ht 162.6 cm; Wt 55.8 kg
[~2018-08-27] VITALS: Ht 162.6 cm; Wt 55.8 kg
[~2018-08-27 08:37] MED LIST changes: +HYDR-3601 PO; -PRENAT PO
[2018-08-27] MEDS ORDERED: SOD CHLORIDE 0.9% 1,000 ML IV ONE (09:00)
[2018-08-27] MEDS ORDERED: CEFAZOLIN 2 GM/50 ML (PMX) 50 ML IVPB ONE (09:00)
[2018-08-27] MEDS ORDERED: ROCURONIUM 50 MG INJ ONE (10:40)
[2018-08-27] MEDS ORDERED: PROPOFOL 20 ML ONE (10:40)
[2018-08-27] MEDS ORDERED: LIDOCAINE 2% (SDV) 5 ML INJ ONE (10:40)
[2018-08-27] MEDS ORDERED: CEFAZOLIN 1 GM INJ ONE (10:42)
[2018-08-27] MEDS ORDERED: FENTAnyl 50 MCG/ML VIAL ONE (10:42)
[2018-08-27] MEDS ORDERED: MIDAZOLAM 1 MG/ML 2 ML INJ ONE (10:43)
--- NOTE | 2018-08-27 11:23 | PREAC ---
Date/Time of Note Date/Time of Note DATE: 08/27/18 TIME: Anesthesia Eval and Record Evaluation Time Pre-Procedure Interview DATE: 08/27/18 TIME: 11: Age 28 Sex female NPO: 8 hrs Preoperative diagnosis right thyroid mass Planned procedure right completion thyroidectomy Past Medical History Past Medical History: Includes Endo: Other (hx left thyroid mass s/p left thyroid lobectomy) Surgery & Anesthesia Issues No known issue Meds Anticoagulation: No Beta Inés within 24 hr: No Reason Beta Inés not given: Pt. not on B-Inés Discontinued Scripts Hydrocodone Bit-Acetaminophen (Hydrocodone Bit-APAP) 5-325MG Tablet, 1 TAB PO Q6H PRN for MODERATE PAIN LEVEL 4-6, #20 TAB Prov:ASHLEY CRAVENLANA 06/05/18 Current Medications Sodium Chloride 1,000 ml @ 75 mls/hr [id number] ONCE IV Last administered on 08/27/18at 10:26; Admin Dose 75 MLS/HR; Start 08/27/18 at 09:00; Stop 08/27/18 at 22:19 Meds reviewed: Yes Allergies Coded Allergies: No Known Allergy (Unverified , 08/27/18) Allergies Reviewed: Yes Labs/Studies Labs Reviewed: Reviewed by anesthesiologist Result Diagram: 08/27/18 1014 08/27/18 1014 Laboratory Tests 08/27/18 10:14 test: Negative Pre-procedure Exam Last vitals Vital Signs Date Temp Pulse Resp B/P (MAP) Pulse Ox O2 O2 Flow FiO2 Time Delivery Rate 08/27/18 98.0 77 18 109/57 95 Room Air 10:00 (74) Airway: Adequate mouth opening, Adequate thyromental dist Mallampati: Mallampati I Teeth: Normal Lung: Normal Heart: Normal ASA Physical Status ASA physical status: 1 Emergency: None Planned Anesthetic General/MAC: ETT Planned Pain Management Local by surgeon Pre-operative Attestations Prior to commencing anesthesia and surgery, the patient was re-evaluated, there was verification of: *The patient's identity *The results of appropriate recent lab work and preoperative vital signs *The above evaluation not changing prior to induction *Anesthetic plan, risk benefits, alternative and complications discussed with patient/family; questions answered; patient/family understands, accepts and wishes to proceed. LIMA BROWER Aug 27, 2018 11:23
[2018-08-27] MEDS ORDERED: ONDANSETRON 4 MG INJ ONE (11:55)
[2018-08-27] MEDS ORDERED: PHENYLephrine (100 MCG/ML) 5ML SYG ONE ×2 (11:55→12:38)
[2018-08-27] MEDS ORDERED: FAMOTIDINE 20 MG INJ ONE (11:55)
[2018-08-27] MEDS ORDERED: METOCLOPRAMIDE 10 MG INJ ONE (11:55)
[2018-08-27] MEDS ORDERED: DEXAMETHASONE 4 MG/ML 5 ML INJ ONE (11:55)
[2018-08-27] MEDS ORDERED: NEOSTIGMINE 3 MG/3 ML SYRINGE ONE (12:48)
[2018-08-27] MEDS ORDERED: GLYCOPYRROLATE 0.4 MG INJ ONE (12:48)
[2018-08-27] MEDS ORDERED: MEPERIDINE 25 MG INJ IV PRN (13:00)
[2018-08-27] MEDS ORDERED: OXYCODONE/ACETAMINOPHEN (5/325) TAB PO PRN ×2 (13:00)
[2018-08-27] MEDS ORDERED: PROCHLORPERAZINE 10 MG INJ IV PRN (13:00)
[2018-08-27] MEDS ORDERED: HYDROmorphONE 1 MG/5 ML IV SYRINGE IV PRN ×2 (13:00)
[2018-08-27] MEDS ORDERED: ONDANSETRON 4 MG INJ IV PRN ×2 (13:00→13:30)
--- NOTE | 2018-08-27 13:10 | NUR ---
PACU/RN-RECEIVED PT. FROM OR [facility]IA [facility], ACCOMPANIED BY OR STAFF AND ANESTHESIA, S/P RIGHT COMPLETION OF THYROIDECTOMY. NOTED TO HAVE BULK DRESSING ON ANTERIOR NECK W/ PAPER ADHESIVE. NO BLEEDING NOTED. AWAKE, ALERT, C/O POST OP INCISIONAL PAIN, 10. WILL MEDICATE W/ PRN PAIN MED. PER PROTOCOL. WILL CONTINUE TO MONITOR PER PROTOCOL.
--- NOTE | 2018-08-27 13:17 | PAC ---
Date/Time of Note Date/Time of Note DATE: 08/27/18 TIME: 13:16 Post-Anesthesia Notes Post-Anesthesia Note Last documented vital signs BP 123/51 RR 16 HR 94 SPo2 100% Temp 98.5 Vital Signs Date Temp Pulse Resp B/P (MAP) Pulse Ox O2 O2 Flow FiO2 Time Delivery Rate 08/27/18 98.0 77 18 109/57 95 Room Air 10:00 (74) Activity: WNL Respiratory function: WNL Cardiovascular function: WNL Mental status: Baseline Pain reasonably controlled: Yes Hydration appropriate: Yes Nausea/Vomiting absent: Yes LIMA BROWER Aug 27, 2018 13:17
--- NOTE | 2018-08-27 13:18 | SIPON ---
Date/Time of Note Date/Time of Note DATE: 08/27/18 TIME: 13:17 Operative Report Preoperative Diagnosis Thyroid cancer need for completion thyroidectomy Postoperative Diagnosis Same Operation/Procedure Performed Right completion thyroidectomy Surgeon see signature line education assistant Dr George Anesthesia: general Estimated blood loss: 10 - 50 ml's Transfusion Required none Specimen Right thyroid lobe Grafts/Implants none Complications none RUI GARCÍA MD Aug 27, 2018 13:18
--- NOTE | 2018-08-27 13:25 | NUR ---
PACU/RN- DR. GAGE Chavarria FOR CONSULT. MESSAGE LEFT TO ANSWERING SERVICE- JENNIFER.
[2018-08-27] MEDS: HYDROmorphONE 1 MG/5 ML IV SYRINGE IV PRN ×2 (13:26→13:34)
[2018-08-27] MEDS ORDERED: morphine 2 MG INJ IV PRN (13:30)
--- NOTE | 2018-08-27 13:33 | OPR ---
DATE OF OPERATION: 08/27/2018 PREOPERATIVE DIAGNOSIS: History of left thyroid cancer, need for completion right thyroidectomy. POSTOPERATIVE DIAGNOSIS: History of left thyroid cancer, need for completion right thyroidectomy. PROCEDURE: Right completion thyroidectomy. ANESTHESIA: General. 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 The original tumor was less than 2 cm and the patient req uested lobectomy. However after meeting with her horologist apprentice, Dr. Mireles, Dr. Mireles recommend ed completion thyroidectomy. The patient consented and was scheduled for surgery. DESCRIPTION OF PROCEDURE: The patient was brought to the operating theater, placed under general end otracheal tube anesthesia. The neck was put into the extended position and prepped and draped in usu al sterile fashion. The previous surgical incisional scar was reincised with 15-blade scalpel and ex tended slightly to the right side. Subcutaneous tissue was dissected with cautery down through the p latysma muscles bilaterally. Subplatysmal flaps were then created using cautery, first inferiorly to the level of the clavicle bilaterally and then superiorly to the approximate level of the hyoid bone . The Stern retractor was then placed and median raphe was incised longitudinally. This allowed v isualization of the underlying strap muscles overlying the right thyroid lobe. The strap muscles wer e meticulously dissected off of the thyroid capsule and retracted laterally. Mobilization of the rig ht thyroid lobe towards midline took place. Attention was directed to the superior pole. Superior p ole was sequentially isolated and transected using the LigaSure device. Great care was taken to iden tify the superior parathyroid gland and keep it out of harm's way. Attention was then directed to th e inferior pole in a similar way. This inferior pole was sequentially isolated and transected with t he LigaSure device. The recurrent laryngeal nerve was identified and kept out of harm's way. In thi s fashion, the entire lobe was dissected and mobilized towards midline. Final connective tissue hari chments to the trachea were then transected with either cautery or the LigaSure device. Specimen was removed, oriented and sent for permanent pathologic analysis. The wound was irrigated. There was n o evidence of residual bleeding. Dr. Mcmahon made the decision that drain was not required. The media n rhaphe was then reapproximated with 4-0 Vicryl sutures in interrupted fashion and subsequently, the platysma muscles were reapproximated also with 4-0 Vicryl sutures in interrupted fashion bilaterally . The skin was then reapproximated with a deep dermal layer of 4-0 Vicryl sutures in interrupted fas hion, followed by final skin approximation with 5-0 PDS sutures in subcuticular fashion and benzoin a nd Steri-Strips were applied. The patient tolerated procedure well. The estimated blood loss was ap proximately 30 mL. There were no complications and the patient was transported in stable condition t o the recovery room. Dictated By: NAVDEEP MCMAHON MD TL/NTS Conf#: [id number] DID#: [id number] CC: CAT ALMONTE MD;*EndCC*
--- NOTE | 2018-08-27 13:59 | NUR ---
PACU/RN- SPOKE TO DR. GARCÍA W/ PHONE ORDER TO ADMIT PT. TO MS.
--- NOTE | 2018-08-27 14:28 | NUR ---
PACU NOTES PHONE REPORT GIVEN TO SOLEDAD ADHIKARI, SITE CLEAN AND DRY, DENIES NAUSEA AND DISCOMFORT. CALLED FAMILY AND RELAYED THE ROOM NUMBER; MARVIN RODARTE SENT WITH THE PATIENT
--- NOTE | 2018-08-27 14:51 | NUR ---
PACU/RN- STABLE, W/ TOLERABLE PAIN, EUPNEIC, W/ TOLERABLE PAIN, TRANSPORTER VIA GURNEY BY TRANSPORTER ED TO ROOM 409.
--- NOTE | 2018-08-27 15:14 | NUR ---
ADMIT: Patient admitted for right completion thyroidectomy. Patient's VSS, stable, no c/o pain. Patient introduced to plan of care. Patient is NPO except for ice chips, tolerating so far. Will endorse patient to receiving RN, Giuliana Sethi. Patient denies any numbness, tingling to arms, hands, fingers. Will follow through with postop orders.
[2018-08-27] MEDS: D5W-0.45 NACL + KCL 20 MEQ 1,000 ML IV SCH ×2 (18:43→21:18)
--- NOTE | 2018-08-27 19:47 | NUR ---
END OF SHIFT NOTE: Patient arrived from PACU at 1455; patient oriented to room and call light; patient verbalized understanding. Patient on ice chips only. Patient reported only throat pain, but refused pain medication. Patient dressing on throat intact with no bleeding on site. Patient voided after surgery. Patient had no other events noted.
[2018-08-27] MEDS: ACETAMINOPHEN 1000MG/100ML IV 100 ML IVPB PRN (20:16)
[2018-08-27] MEDS ORDERED: HYDROCODONE/APAP (5/325) TAB PO PRN (22:00)
--- NOTE | 2018-08-28 01:41 | HP ---
DATE OF ADMISSION: 08/27/2018 CHIEF COMPLAINT AND HISTORY OF PRESENT ILLNESS: The patient is 28-year-old female well known to me f rom previous admission. The patient is status post left thyroid lobectomy back in 05/2018 for enlarg ing left thyroid mass with nondiagnostic FNAC. The patient subsequently had been following up with Linda García and since her pathology from surgery in 05/2018 came back positive for papillary thyroid car cinoma and also chronic lymphocytic thyroiditis. The patient was brought into hospital today and und erwent a right completion thyroidectomy. The patient has significant postoperative pain and is being admitted for further evaluation and management. The patient denied any history of chest pain, short ness of breath. No history of headache, dizziness, syncope. No history of palpitation. No history of abdominal pain. No history of nausea, vomiting or recent diarrhea. No history of dysuria, hematu singh. REVIEW OF SYSTEMS: Rest of the systems is unremarkable. PAST MEDICAL HISTORY: As stated above. In addition, the patient had surgery for ectopic . SOCIAL HISTORY: No smoking or alcohol. FAMILY HISTORY: Noncontributory. PHYSICAL EXAMINATION: GENERAL: Revealed the patient to be conscious, awake, alert, fairly oriented. VITAL SIGNS: Temperature 98, pulse 93, respirations 18, blood pressure 99/54, O2 saturation 99% on r oom air. HEENT: No eye discharge or redness. Conjunctivae are normal. Nose and ears are normal. NECK: The patient is status post completion right thyroidectomy. CHEST: Fairly clear. CARDIOVASCULAR: S1, S2 normal. No murmur. ABDOMEN: Soft, nondistended, nontender. EXTREMITIES: No leg edema. NEUROLOGIC: The patient is awake, alert, fairly oriented with no gross focal deficit. LABORATORY DATA: Done today, WBC 6.6, hemoglobin 14.3, platelet 286. Chemistry: Sodium 141, potass ium 4.2, BUN 9, creatinine 0.6. Liver enzymes are normal. IMPRESSION: Papillary carcinoma of thyroid, status post left thyroid lobectomy back in 05/2018 and n ow patient underwent completion right thyroidectomy. PLAN: The patient was admitted on medical floor. The patient will be started on clear liquid diet, which will be advanced as tolerated. For pain control, the patient will be given Tylenol, [place] and morphine. The patient has been following with Dr. Mireles from endocrine standpoint and we will cont inue to follow after discharge. We will use SCD for DVT prophylaxis. Further recommendation will depend upon the patient's hospital course. Dictated By: CAT OROZCO/NTS Conf#: [id number] DID#: [id number] CC: RUI GARCÍA MD;*EndCC*
[2018-08-28 03:22] VITALS: BP 93/46; PULSE 70; RESP 16
[2018-08-28] MEDS: D5W-0.45 NACL + KCL 20 MEQ 1,000 ML IV SCH ×2 (04:48→13:18)
--- NOTE | 2018-08-28 05:51 | NUR ---
PT MEDICATED WITH TYLENOL IV FOR HEADACHE WITH EFFECTIVENESS. SPENT TIME WITH PT DISCUSSING SIDE EFFECTS OF ANESTHESIA, INTUBATION DURING SURGERY, POSSIBLE OUTCOMES OF SURGERY AND SUGGESTED TO PT TO WRITE CONCERNS DOWN AND DISCUSS THEM WITH MD. PT AND FAMILY MEMBERS VERBALIZED UNDERSTANDING. PT UP TO BR WITH SBA, PT STEADY. PT ALSO INSTRUCTED ON NPO STATUS AND RATIONALE AND VERBALIZES UNDERSTANDING. AT THIS TIME PT RESTING QUIETLY IN BED, FAMILY MEMBER AT BEDSIDE. VSS, AFEBRILE, DENIES PAIN. ANTERIOR NECK DSG CDI. WILL CONTINUE POC
[2018-08-28 08:43] VITALS: BP 94/55; PULSE 87; RESP 16
[2018-08-28] MEDS: ACETAMINOPHEN 1000MG/100ML IV 100 ML IVPB PRN (11:34)
[2018-08-28 12:00] VITALS: BP 100/52; PULSE 90; RESP 18
--- NOTE | 2018-08-28 14:00 | NUR ---
Transfer of care: Report given to Giuliana ROWE for transfer of care. Tylenol administered once for pain. Pt reports dizziness and headache but says it is improved from yesterday. Pt advanced to full liquids by Dr. George and cleared for discharge from surgical perspective.
[2018-08-28] MEDS ORDERED: LEVO75TA5 PO (14:23)
[2018-08-28] MEDS ORDERED: HYDR-3601 PO (14:23)
--- NOTE | 2018-08-28 14:43 | PN ---
DATE: 08/28/2018 Postop day #1 status post completion right thyroidectomy. SUBJECTIVE: No specific complaint. OBJECTIVE: GENERAL: Awake, alert, oriented x3. Voice is okay. VITAL SIGNS: Temperature maximum 98.6, heart rate 70 to 87, respirations 16, blood pressure 93/44, s aturation 98% on room air. HEART: Regular. LUNGS: Clear. ABDOMEN: Soft. SKIN: Dressing was removed. Wound is clean and dry. LABORATORY DATA: Today, calcium has been checked on 2 occasions at 30 minutes midnight which was 8.9 and at 4:30 a.m. today which was 9.1 and yesterday before operation was 9.7. WBC is 6600 with 61% s egmented, hemoglobin 14.3, hematocrit 44.1. The patient has not started a diet yet. We are going to start the patient on full liquid diet. if s he tolerates with no problem, we will check another calcium at 2:00 and if that is okay, the patient can be discharged home to be followed by Dr. García in the office. Also, the medical service provided prescription for thyroxine for this patient. Dictated By: VILMA OCONNOR MD PS/NTS Conf#: [id number] DID#: [id number] CC: RUI GARCÍA MD; CAT ALMONTE MD;*EndCC*
--- NOTE | 2018-08-28 16:27 | NUR ---
DISCHARGE NOTE: Patient educated on all discharge instructions and verbalized understanding. Patient's IV was removed with catheter tip intact and dry gauze applied to site. Patient had no questions at time of discharge and patient stable for discharge. Patient requesting to fill rx before discharge. Patient family member given rx.
--- NOTE | 2018-08-28 17:11 | NUR ---
NURSE NOTE: Patient able to get medications and refused wheel chair walked by herself.
--- NOTE | 2018-09-02 22:48 | DS ---
Date/Time of Note Date/Time of Note DATE: 09/02/18 TIME: 22:46 Discharge Summary Admission/Discharge Info Admit Date/Time Aug 27, 2018 at 08:37 Discharge Date/Time Aug 28, 2018 at 17:15 Patient Condition: Stable Hx of Present Illness The patient is 28-year-old female well known to me from previous admission. The patient is status post left thyroid lobectomy back in 05/2018 for enlarging left thyroid mass with nondiagnostic FNAC. The patient subsequently had been following up with Dr. Mcmahon and since her pathology from surgery in 05/2018 came back positive for papillary thyroid carcinoma and also chronic lymphocytic thyroiditis. The patient was brought into hospital today and underwent a right completion thyroidectomy. The patient has significant postoperative pain and is being admitted for further evaluation and management. The patient denied any history of chest pain, shortness of breath. No history of headache, dizziness, syncope. No history of palpitation. No history of abdominal pain. No history of nausea, vomiting or recent diarrhea. No history of dysuria, hematuria. Hospital Course Papillary carcinoma of thyroid, status post left thyroid lobectomy back in 05/2018 and now patient underwent completion right thyroidectomy. Home Meds Active Scripts Levothyroxine Sodium* (Levothyroxine Sodium*) 75 Mcg Tablet, 75 MCG PO BEFORE BREAKFAST, #30 TAB Prov:HAO CRAVEN 08/28/18 Hydrocodone Bit-Acetaminophen (Hydrocodone Bit-APAP) 5-325MG Tablet, 1 TAB PO Q6H PRN for MODERATE PAIN LEVEL 4-6, #20 TAB Prov:HAO CRAVEN 08/28/18 Discontinued Scripts Hydrocodone Bit-Acetaminophen (Hydrocodone Bit-APAP) 5-325MG Tablet, 1 TAB PO Q6H PRN for MODERATE PAIN LEVEL 4-6, #20 TAB Prov:HAO CRAVEN 06/05/18 Follow-up Plan Discharge if cleared by surgery, follow-up with Dr. Mcmahon in 2 weeks, follow-up with currency machine operator on Monday Primary Care Provider [facility], [place] Time spent on discharge: > 30 minutes HAO CRAVEN Sep 02, 2018 22:48
== END 2018-08-28 17:15 | disposition home or self-care (01) | DRG 627 ==
LOC: REC 08:37 → EDSTATUS 11:00 → MS1 14:56
PROVIDERS: ADMIT Surgery Surgical Oncology; ATTEND Surgery Surgical Oncology
PROC: 0GTH0ZZ Resection of Right Thyroid Gland Lobe, Open Approach (ICD-10-PCS; principal; 2018-08-27 11:00)
DX: C73 Malignant neoplasm of thyroid gland (principal)
CPT/HCPCS: 80053; 82310; 84703; 85025; 85610; 85730; 88307; 90686; J0131; J0690; J1100; J1170; J2250; J2370; J2405; J2710; J2765; J3010; J3480; J7030